=== PATIENT | female | born 1980 | race Caucasian/White ===

== ENCOUNTER → 2016-09-17 | Outpatient (REF) | payer OTHER ==
[~2016-09-17] MED LIST: ACET50TA PO; IBUP60TA PO; LEVO50TA5 PO; VITAPRTA PO
== END ==
LOC: M SFHCWAGY 08:29
PROVIDERS: ATTEND Nurse Practitioner Women's Health
DX: Z12.4 Encounter for screening for malignant neoplasm of cervix (principal)

== ENCOUNTER → 2016-11-09 | Outpatient (REF) | payer OTHER | LOC: M LAB REF 12:30 | PROVIDERS: ATTEND Family Medicine | DX: M25.50 Pain in unspecified joint (principal) ==

== ENCOUNTER → 2017-03-10 | Outpatient (CLI) | payer OTHER ==
[2017-03-10 19:57] LABS: BASO % 0.4 % (0.0-1.0); EOS # 0.1 10^3/uL (0.0-0.50); EOS % 1.3 % (0.0-3.0); IMMATURE GRANULOCYTE % 0.3 % (0-0); LYMPH # 1.2 10^3/uL (1.5-4.5); LYMPH % 15.1 % (24.0-44.0); MEAN CORPUSCULAR HEMOGLOBIN 28.9 pg (27.0-33.0); MEAN CORPUSCULAR HGB CONC 33.1 g/dl (32.0-36.5); MEAN CORPUSCULAR VOLUME 87.3 fl (80.0-96.0); MONO # 0.5 10^3/uL (0.0-0.8); MONO % 6.2 % (0.0-5.0); NEUTROPHILS # 5.9 10^3/uL (1.8-7.7); NEUTROPHILS % 76.7 % (36.0-66.0); PLATELET COUNT, AUTOMATED 239 10^3/uL (150-450); RED CELL DISTRIBUTION WIDTH 13.2 % (11.5-14.5); WHITE BLOOD COUNT 7.6 10^3/uL (4.0-10.0)
[2017-03-12 10:27] LABS: HBsAg Prenatal NEGATIVE (NEGATIVE)
== END ==
LOC: M WUC 15:56
DX: Z36.89 Encounter for other specified antenatal screening (principal); Z3A.11 11 weeks gestation of pregnancy
CPT/HCPCS: 86762

== ENCOUNTER → 2017-04-21 | Outpatient (CLI) | payer OTHER | LOC: M SMT 10:46 | DX: O09.522 Supervision of elderly multigravida, second trimester (principal) ==

== ENCOUNTER → 2017-04-21 | Outpatient (CLI) | payer OTHER | LOC: M SMT 08:27 | DX: O09.522 Supervision of elderly multigravida, second trimester (principal) ==

== ENCOUNTER → 2017-05-18 | Outpatient (CLI) | payer OTHER | LOC: M SMT 13:29 | DX: O09.522 Supervision of elderly multigravida, second trimester (principal); Z3A.22 22 weeks gestation of pregnancy | CPT/HCPCS: 76816 ==

== ENCOUNTER → 2017-06-14 | Outpatient (CLI) | payer OTHER ==
[2017-06-14 13:40] LABS: HEMATOCRIT 32.4 % (36.0-47.0); HEMOGLOBIN 10.5 g/dl (12.0-15.5); MEAN CORPUSCULAR HEMOGLOBIN 28.7 pg (27.0-33.0); MEAN CORPUSCULAR HGB CONC 32.4 g/dl (32.0-36.5); MEAN CORPUSCULAR VOLUME 88.5 fl (80.0-96.0); PLATELET COUNT, AUTOMATED 219 10^3/uL (150-450); RED BLOOD COUNT 3.66 10^6/uL (4.00-5.40); RED CELL DISTRIBUTION WIDTH 13.5 % (11.5-14.5)
[2017-06-14 13:54] LABS: GLUCOSE CHALLENGE TEST 1 HOUR 121 MG/DL (LESS THAN 140)
== END ==
LOC: M SMT 09:54
DX: O09.522 Supervision of elderly multigravida, second trimester (principal); Z3A.00 Weeks of gestation of pregnancy not specified
CPT/HCPCS: 82950

== ENCOUNTER → 2017-07-08 | Outpatient (CLI) | payer OTHER ==
[2017-07-08 12:23] LABS: FREE T4 1.04 NG/DL (0.76-1.46)
== END ==
LOC: M WUC 09:01
DX: E03.9 Hypothyroidism, unspecified (principal)
CPT/HCPCS: 84443

== ENCOUNTER → 2017-08-13 | Outpatient (REF) | payer OTHER | LOC: M LAB REF 15:35 | DX: Z34.83 Encounter for supervision of other normal pregnancy, third trimester (principal); Z3A.00 Weeks of gestation of pregnancy not specified ==

== ENCOUNTER 2017-09-12 19:45 | Inpatient (IN) | payer OTHER ==
[2017-09-12] MEDS: LR 1,000 ML IV (20:26)
[2017-09-12] MEDS: LACTATED RINGER'S 1000 ML IV (20:39)
[2017-09-12] MEDS: OXYTOCIN DRIP 30 UNITS in APPROPRIATE DILUENT 1 EA IV (20:39)
[2017-09-12 20:40] LABS: MEAN CORPUSCULAR HEMOGLOBIN 29.2 pg (27.0-33.0); MEAN CORPUSCULAR HGB CONC 33.3 g/dl (32.0-36.5); MEAN CORPUSCULAR VOLUME 87.6 fl (80.0-96.0); PLATELET COUNT, AUTOMATED 185 10^3/uL (150-450); RED BLOOD COUNT 4.11 10^6/uL (4.00-5.40); WHITE BLOOD COUNT 6.8 10^3/uL (4.0-10.0)
[2017-09-12 20:50] LABS: ALT/SGPT 19 U/L (12-78); AST/SGOT 21 U/L (7-37); BILIRUBIN,TOTAL 0.3 MG/DL (0.2-1.0); CREATININE FOR GFR 0.55 MG/DL (0.55-1.30); GLOMERULAR FILTRATION RATE > 60.0 (>60); LDH LACTATE DEHYDROGENASE 200 U/L (84-246); URIC ACID 3.5 MG/DL (2.6-6.0)
[2017-09-13] MEDS ORDERED: RHOGAM 300 MCG (1500 IU) INJ (J2790) IM (03:00)
[2017-09-13] MEDS ORDERED: MEASLES,MUMPS,RUBELLA VACCINE INJ (MMR-II) (90707) SC (03:00)
[2017-09-13] MEDS ORDERED: MOM 30ML SUSPENSION UDC PO (03:00)
[2017-09-13] MEDS ORDERED: ANUSOL HC CREAM 30GM TOP (03:00)
[2017-09-13] MEDS ORDERED: DOCUSATE SODIUM 100 MG CAP PO (03:00)
[2017-09-13] MEDS ORDERED: ACETAMINOPHEN 500 MG TAB PO (03:00)
[2017-09-13] MEDS: METHYLERGONOVINE MALEATE 0.2 MG TAB PO ×4 (03:22→21:14)
[2017-09-13] MEDS: LIDOCAINE 1% MDV 20ML VIAL INFIL (03:22)
[2017-09-13] MEDS: LEVOTHYROXINE 50MCG TABLET (0.05MG) PO (06:02)
[2017-09-13] MEDS: PRENATAL VITAMINS CHEWABLE TABLET PO (10:02)
[2017-09-13] MEDS: IBUPROFEN 800 MG TAB PO (16:51)
[2017-09-13] MEDS: DIBUCAINE 1% OINTMENT 30GM TOP (21:14)
[2017-09-14] MEDS ORDERED: METHYLERGONOVINE MALEATE 0.2 MG TAB PO (04:00)
[2017-09-14] MEDS: LEVOTHYROXINE 50MCG TABLET (0.05MG) PO (06:35)
[2017-09-14] MEDS: PRENATAL VITAMINS CHEWABLE TABLET PO (09:29)
== END 2017-09-14 14:30 | disposition home or self-care (01) | DRG 560 ==
LOC: M LDI 19:45 → M OBS 09-13 04:39
PROC: 3E033VJ Introduction of Other Hormone into Peripheral Vein, Percutaneous Approach (ICD-10-PCS; 2017-09-12)
PROC: 10907ZC Drainage of Amniotic Fluid, Therapeutic from Products of Conception, Via Natural or Artificial Opening (ICD-10-PCS; 2017-09-12)
PROC: 10E0XZZ Delivery of Products of Conception, External Approach (ICD-10-PCS; principal; 2017-09-13)
PROC: 0HQ9XZZ Repair Perineum Skin, External Approach (ICD-10-PCS; 2017-09-13)
DX: O48.0 Post-term pregnancy (principal); E03.9 Hypothyroidism, unspecified; Z37.0 Single live birth; Z3A.40 40 weeks gestation of pregnancy; O99.284 Endocrine, nutritional and metabolic diseases complicating childbirth; O09.523 Supervision of elderly multigravida, third trimester; O70.0 First degree perineal laceration during delivery

== ENCOUNTER → 2017-10-07 | Outpatient (REF) | payer OTHER | LOC: M LAB REF 17:02 | DX: R10.30 Lower abdominal pain, unspecified (principal) ==

== ENCOUNTER → 2018-10-07 | Outpatient (REF) | payer OTHER ==
[~2018-10-07] MED LIST changes: -ACET50TA PO; +COLA100C5 PO; +IBUP600T42 PO; -IBUP60TA PO; +MAPA500T2 PO; +MILK120011 PO
[2018-10-07 10:39] LABS: BASO % 0.4 % (0.0-1.0); EOS # 0.1 10^3/uL (0.0-0.50); EOS % 1.6 % (0.0-3.0); HEMATOCRIT 39.5 % (36.0-47.0); HEMOGLOBIN 12.9 g/dl (12.0-15.5); LYMPH % 22.7 % (24.0-44.0); MEAN CORPUSCULAR HEMOGLOBIN 27.9 pg (27.0-33.0); MEAN CORPUSCULAR HGB CONC 32.7 g/dl (32.0-36.5); MEAN CORPUSCULAR VOLUME 85.3 fl (80.0-96.0); MONO # 0.3 10^3/uL (0.0-0.8); MONO % 7.4 % (0.0-5.0); NEUTROPHILS % 67.5 % (36.0-66.0); PLATELET COUNT, AUTOMATED 237 10^3/uL (150-450); RED BLOOD COUNT 4.63 10^6/uL (4.00-5.40); WHITE BLOOD COUNT 4.5 10^3/uL (4.0-10.0)
[2018-10-07 10:45] LABS: C REACTIVE PROTEIN QUANTITATIV 0.35 MG/DL (0.00-0.30); RHEUMATOID FACTOR QUANT < 10.0 IU/ML (<15.0)
[2018-10-07 11:21] LABS: ERYTHROCYTE SEDIMENTATION RATE 12 mm/hr (0-20)
[2018-10-11 14:07] LABS: ANTINUCLEAR ANTIBODIES DIRECT Negative (Negative); Lyme Disease IgG Ab 18 kDa Ban Present (.); Lyme Disease IgG Ab 23 kDa Ban Absent (.); Lyme Disease IgG Ab 28 kDa Ban Absent (.); Lyme Disease IgG Ab 30 kDa Ban Absent (.); Lyme Disease IgG Ab 39 kDa Ban Absent (.); Lyme Disease IgG Ab 41 kDa Ban Absent (.); Lyme Disease IgG Ab 45 kDa Ban Absent (.); Lyme Disease IgG Ab 58 kDa Ban Absent (.); Lyme Disease IgG Ab 66 kDa Ban Absent (.); Lyme Disease IgG Ab 93 kDa Ban Absent (.); Lyme Disease IgG West Blot Int Negative (.); Lyme Disease IgG/IgM Antibodie <0.91 ISR (0.00-0.90); Lyme Disease IgM Ab 23 kDa Ban Absent (.); Lyme Disease IgM Ab 39 kDa Ban Absent (.); Lyme Disease IgM Ab 41 kDa Ban Present (.); Lyme Disease IgM Ab Quantitati 0.94 index (0.00-0.79); Lyme Disease IgM West Blot Int Negative (.)
== END ==
LOC: M LABDRAW1 09:33
PROVIDERS: ATTEND Orthopaedic Surgery
DX: M25.551 Pain in right hip (principal)

== ENCOUNTER → 2020-01-11 | Outpatient (REF) | payer BC, OTHER | LOC: M SFHCWAGY 17:13 | PROVIDERS: ATTEND Nurse Practitioner Women's Health | DX: Z12.4 Encounter for screening for malignant neoplasm of cervix (principal) | CPT/HCPCS: 87624; G0123 ==

== ENCOUNTER → 2020-01-16 | Outpatient (CLI) | payer BC ==
--- NOTE | 2020-01-16 15:36 | REPMRS ---
Patient History The patient states she had a clinical breast exam in December 2019. Patient had first child at age 35. Family history of prostate cancer in maternal grandfather. Took hormonal contraceptives for 9 years beginning at age 14. 3D TOMOSYNTHESIS WAS PERFORMED. [facility] lifetime risk for breast cancer is 14.1%. Volpara breast density b. Digital Woman Screen Mammo: January 16, 2020 - Exam #: [id number] Bilateral CC and MLO view(s) were taken. Technologist: Brenna Emery, RT No prior studies available for comparison. FINDINGS: There are scattered fibroglandular densities. There is a mild amount of residual fibroglandular tissue which is fairly symmetric. There is no dominant mass, architectural distortion, or clustered microcalcification suggestive of malignancy. Assessment: BI-RADS/ACR category 1 mammogram. Negative Mammogram. Recommendation Routine screening mammogram in 1 year (for women over age 40). This mammogram was interpreted with the aid of an FDA-approved computer-aided dectection system. Electronically Signed By: Aidan Arauz MD 01/16/20 [id number]
== END ==
LOC: M WHC 13:51
PROVIDERS: ATTEND Nurse Practitioner Women's Health
DX: Z12.31 Encounter for screening mammogram for malignant neoplasm of breast (principal); Z80.42 Family history of malignant neoplasm of prostate

== ENCOUNTER → 2020-08-15 | Outpatient (CLI) | payer BC ==
--- NOTE | 2020-08-15 14:47 | REP ---
INDICATION: N92.6 IRREG MENSES COMPARISON: None. TECHNIQUE: Transabdominal pelvic ultrasound followed by transvaginal examination for better evaluation of the endometrium and adnexa with color Doppler evaluation of the ovaries. FINDINGS: Bladder is unremarkable and measures 11.7 x 8.3 x 10.3 cm. Anteverted uterus measures 13.3 x 5.1 x 8.2 cm. The endometrial complex is hypervascular and thickened measuring up to 21 mm without discrete focal polyp or mass identified. Bilateral ovaries are normal in appearance and vascularity without evidence for torsion. Right ovary measures 2.9 x 1.6 x 2.5 cm; R I = 0.51. Left ovary measures 2.8 x 2.2 x 3.2 cm; R I = 0.48. A tubular structure is identified in the left adnexa adjacent to the ovary suggesting hydrosalpinx. IMPRESSION: 1. Thickened heterogeneous endometrium with surrounding increased vascularity may represent hyperplasia. No obvious focal polyp or mass identified. 2. Possible left adnexal hydrosalpinx. Normal appearance of the bilateral ovaries. 3. Above findings may warrant short-term follow-up ultrasound and if necessary pelvic MRI may be considered for further investigation. <Electronically signed by David Bonner > 08/15/20 [id number]
== END ==
LOC: M WHC 12:55
PROVIDERS: ATTEND Advanced Practice Midwife
DX: N92.6 Irregular menstruation, unspecified (principal); R93.89 Abnormal findings on diagnostic imaging of other specified body structures; N85.4 Malposition of uterus

== ENCOUNTER → 2020-08-19 | Outpatient (REF) | payer BC ==
[2020-08-19 13:46] LABS: HEMATOCRIT 39.3 % (36.0-47.0); MEAN CORPUSCULAR HEMOGLOBIN 29.1 pg (27.0-33.0); MEAN CORPUSCULAR HGB CONC 33.1 g/dl (32.0-36.5); MEAN CORPUSCULAR VOLUME 87.9 fl (80.0-96.0); PLATELET COUNT, AUTOMATED 220 10^3/uL (150-450); RED BLOOD COUNT 4.47 10^6/uL (4.00-5.40); WHITE BLOOD COUNT 4.5 10^3/uL (4.0-10.0)
[2020-08-19 14:32] LABS: FREE T4 0.99 NG/DL (0.76-1.46); THYROID STIMULATING HORMONE 1.28 uIU/ML (0.358-3.740)
== END ==
LOC: M PLALAB 11:32
PROVIDERS: ATTEND Advanced Practice Midwife
DX: N92.6 Irregular menstruation, unspecified (principal)

== ENCOUNTER → 2020-08-21 | Outpatient (REF) | payer BC | LOC: M SFHCWAGY 09:57 | PROVIDERS: ATTEND Advanced Practice Midwife | DX: O03.9 Complete or unspecified spontaneous abortion without complication (principal) ==

== ENCOUNTER → 2020-08-22 | Outpatient (CLI) | payer BC ==
[~2020-08-22] MED LIST changes: +LEVO25TA5 PO; +PRENTAB60 PO
== END ==
LOC: M LABSMTC 12:38
PROVIDERS: ATTEND Anesthesiology
DX: Z01.812 Encounter for preprocedural laboratory examination (principal); Z20.822 Contact with and (suspected) exposure to COVID-19

== ENCOUNTER 2020-08-23 10:47 | Day surgery (SDC) | payer BC ==
[~2020-08-23] VITALS: Ht 167.6 cm; Wt 87.9 kg
[~2020-08-23 10:47] MED LIST changes: -LEVO25TA5 PO; +LIDOCAINE 1% MDV 20ML VIAL SQ PRN; +LIDOCAINE 2% 100MG/5ML SDV (FOR ANES.) As Ordered ONE; +MIDAZOLAM INJ 2MG/2ML VIAL (J2250 PER 1MG) As Ordered ONE; -PRENTAB60 PO; +fentaNYL 100 MCG/2 ML INJECTION (J3010) As Ordered ONE; +propofoL 200 MG/20 ML VIAL As Ordered ONE
[2020-08-23] MEDS ORDERED: LEVO25TA5 PO (11:09)
[2020-08-23] MEDS ORDERED: PRENTAB60 PO (11:09)
[2020-08-23 11:22] LABS: HEMATOCRIT 38.8 % (36.0-47.0); HEMOGLOBIN 12.5 g/dl (12.0-15.5); MEAN CORPUSCULAR HEMOGLOBIN 28.3 pg (27.0-33.0); MEAN CORPUSCULAR HGB CONC 32.2 g/dl (32.0-36.5); PLATELET COUNT, AUTOMATED 209 10^3/uL (150-450); RED BLOOD COUNT 4.41 10^6/uL (4.00-5.40); WHITE BLOOD COUNT 4.1 10^3/uL (4.0-10.0)
[2020-08-23] MEDS ORDERED: LR 1,000 ML IV ONE (11:45)
[2020-08-23 11:52] LABS: HCG, SERUM QUALITATIVE POSITIVE (NEGATIVE)
[2020-08-23] MEDS ORDERED: ACETAMINOPHEN 1000MG 100ML IV BTL (OFIRMEV) (J0131 PER 10MG) As Ordered ONE (12:26)
[2020-08-23] MEDS ORDERED: dexameTHASONE 4 MG/ML 1ML VIAL (J1100 PER 1MG) As Ordered ONE (12:26)
[2020-08-23] MEDS ORDERED: ONDANSETRON 4MG/2ML VIAL As Ordered ONE (12:26)
[2020-08-23] MEDS ORDERED: METHYLERGONOVINE MALEATE 0.2 MG/ML VIAL (J2210) As Ordered ONE (12:53)
[2020-08-23] MEDS ORDERED: METOCLOPRAMIDE INJ 10MG/2ML VIAL (J2765 PER 1) As Ordered ONE (12:56)
--- NOTE | 2020-08-23 13:10 | ROOPDOC ---
[facility] Report Of Operation Report of Operation DATE OF PROCEDURE: 08/23/2020 PREOPERATIVE DIAGNOSIS: Suspected retained products of conception, status post first trimester miscarriage/endometrial cavity mass POSTOPERATIVE DIAGNOSIS: Suspected retained products of conception, status post first trimester miscarriage / endometrial cavity mass PROCEDURE PERFORMED: Hysteroscopy, dilatation and curettage. Suction curettage SURGEON: Sree Wiggins DO IRB COMPLIANCE COORDINATOR: None. ANESTHESIA TYPE: General via LMA. SPECIMENS SENT TO PATHOLOGY: Endometrial curettings, suction curettings for endometrial biopsy. Suspected products of conception ESTIMATED BLOOD LOSS: 200 mL. FLUIDS REPLACED: 900 mL lactated Ringer's. DRAINS: In and out urinary catheter. URINE OUTPUT: 250 mL. in and out catheter COMPLICATIONS: None. PREOPERATIVE ANTIBIOTICS: None indicated. INTRAOPERATIVE FINDINGS: A significant amount of tissue noted in the right side of the endometrial cavity, self pay representative images were taken. Subsequent removal revealed tissue that was grossly consistent with products of conception versus endometrial polypoid tissue. Given her history, I suspect products of conception INDICATIONS: 40-year-old with persistent bleeding after a miscarriage in May 2020 and an ultrasound suggestive of an endometrial mass with vascularity. PROCEDURE: The patient was counseled and consented on the risks, benefits, indications, and alternatives of the procedure. Informed consent was obtained. She was taken to the operating room with an IV running and placed on the operating room table in the dorsal supine position. General anesthesia was administered and the airway secured without any difficulty. She was then placed in the high lithotomy position. She was prepped and draped in normal sterile fashion. A timeout was performed per protocol. The bladder was drained with a sterile in and out catheter. A sterile speculum was placed with good visualization of the cervix. The cervix was grasped with a single-toothed tenaculum and downward traction was applied. The cervix was then sequentially dilated with Arthur dilators up to a #18. The hysteroscope was placed transcervically into the intrauterine cavity with the findings noted above, then the hysteroscope was removed after taking self pay representative images. The curette was placed transcervically into the intrauterine cavity and the tissue that had been visualized was curetted until there was gritty texture noted throughout the cavity. Initial brisk bleeding was noted after this was performed, thus 0.2 mg IM Methergine was administered. Suction curettage was performed with a size 8 curved Vacurette, just to ensure that all the tissue was removed. The bleeding from the os after removal of the Vacurette was minimal. The tenaculum was removed. The tenaculum sites were hemostatic. All instruments were removed from the vagina. Sponge, needle, and instrument counts were correct per protocol. The patient tolerated the entire procedure well. She was transferred to the PACU in good and stable condition. SREE WIGGINS DO Aug 23, 2020 13:10
[2020-08-23] MEDS ORDERED: DOXYCYCLINE HYCLATE 100MG TABLET PO ONE (13:15)
[2020-08-23] MEDS ORDERED: LR 1,000 ML IV SCH ×2 (13:15→13:25)
[2020-08-23] MEDS ORDERED: fentaNYL 100 MCG/2 ML INJECTION (J3010) IV PRN (13:25)
[2020-08-23] MEDS ORDERED: ONDANSETRON 4MG/2ML VIAL IV PRN (13:25)
[2020-08-23] MEDS ORDERED: oxyCODONE 5MG TAB PO PRN (13:25)
[2020-08-23 13:41] LABS: HCG, SERUM QUANTITATIVE 125 MIU/ML
[2020-08-23 14:35] VITALS: BP 144/80
== END 2020-08-23 14:40 | disposition home or self-care (01) ==
LOC: M SDC 10:47
PROVIDERS: ATTEND Obstetrics & Gynecology
DX: N93.9 Abnormal uterine and vaginal bleeding, unspecified (principal); E03.9 Hypothyroidism, unspecified; M19.90 Unspecified osteoarthritis, unspecified site
CPT/HCPCS: 36415; 58558; 84702; 84703; 85027; 86850; 86900; 86901; 88305; J0131; J1100; J2210; J2250; J2405; J2765; J3010

== ENCOUNTER → 2021-02-11 | Outpatient (CLI) | payer BC ==
[~2021-02-11] MED LIST changes: +LEVO25TA5 PO; -LIDOCAINE 1% MDV 20ML VIAL SQ PRN; -LIDOCAINE 2% 100MG/5ML SDV (FOR ANES.) As Ordered ONE; -MIDAZOLAM INJ 2MG/2ML VIAL (J2250 PER 1MG) As Ordered ONE; +PRENTAB60 PO; -fentaNYL 100 MCG/2 ML INJECTION (J3010) As Ordered ONE; -propofoL 200 MG/20 ML VIAL As Ordered ONE
== END ==
LOC: M WHC 07:29
PROVIDERS: ATTEND Nurse Practitioner Women's Health
DX: Z12.31 Encounter for screening mammogram for malignant neoplasm of breast (principal); Z80.42 Family history of malignant neoplasm of prostate

== ENCOUNTER → 2021-07-30 | Outpatient (REF) | payer BC | LOC: M LAB REF 12:21 | PROVIDERS: ATTEND Family Medicine | DX: N91.1 Secondary amenorrhea (principal) ==

== ENCOUNTER → 2021-09-19 | Outpatient (CLI) | payer BC ==
[2021-09-19 13:09] LABS: BASO % 0.5 % (0.0-1.0); EOS # 0.1 10^3/uL (0.0-0.5); HEMATOCRIT 38.5 % (36.0-47.0); HEMOGLOBIN 12.8 g/dl (12.0-15.5); LYMPH # 0.8 10^3/uL (1.5-5.0); LYMPH % 14.3 % (24.0-44.0); MEAN CORPUSCULAR HEMOGLOBIN 28.9 pg (27.0-33.0); MEAN CORPUSCULAR HGB CONC 33.2 g/dl (32.0-36.5); MEAN CORPUSCULAR VOLUME 86.9 fl (80.0-96.0); MONO # 0.4 10^3/uL (0.0-0.8); MONO % 6.4 % (2.0-8.0); NEUTROPHILS # 4.5 10^3/uL (1.5-8.5); NEUTROPHILS % 77.5 % (36.0-66.0); PLATELET COUNT, AUTOMATED 221 10^3/uL (150-450); RED BLOOD COUNT 4.43 10^6/uL (4.00-5.40); WHITE BLOOD COUNT 5.8 10^3/uL (4.0-10.0)
[2021-09-19 14:36] LABS: HEPATITIS C VIRUS ABY INDEX 0.1 INDEX (<0.8); HIV 1&2 SCREEN CENTAUR NEGATIVE (NEGATIVE)
[2021-09-19 14:44] LABS: GC DNA AMPLIFICATION NEGATIVE (NEGATIVE)
== END ==
LOC: M PLALAB 10:49
PROVIDERS: ATTEND Specialist
DX: Z34.81 Encounter for supervision of other normal pregnancy, first trimester (principal)

== ENCOUNTER → 2021-11-10 | Outpatient (CLI) | payer BC ==
[2021-11-10 11:56] LABS: FREE T4 1.03 NG/DL (0.76-1.46); THYROID STIMULATING HORMONE 2.39 uIU/ML (0.358-3.740)
== END ==
LOC: M PLALAB 08:26
PROVIDERS: ATTEND Obstetrics & Gynecology
DX: E03.9 Hypothyroidism, unspecified (principal)

== ENCOUNTER → 2021-11-18 | Outpatient (CLI) | payer BC | LOC: M WHC 09:30 | PROVIDERS: ATTEND Obstetrics & Gynecology | DX: Z36.3 Encounter for antenatal screening for malformations (principal); Z3A.19 19 weeks gestation of pregnancy ==

== ENCOUNTER → 2022-01-09 | Outpatient (CLI) | payer BC ==
[2022-01-09 13:55] LABS: HEMATOCRIT 32.3 % (36.0-47.0); HEMOGLOBIN 10.3 g/dl (12.0-15.5); MEAN CORPUSCULAR HEMOGLOBIN 29.1 pg (27.0-33.0); MEAN CORPUSCULAR HGB CONC 31.9 g/dl (32.0-36.5); MEAN CORPUSCULAR VOLUME 91.2 fl (80.0-96.0); PLATELET COUNT, AUTOMATED 205 10^3/uL (150-450); RED BLOOD COUNT 3.54 10^6/uL (4.00-5.40); WHITE BLOOD COUNT 5.8 10^3/uL (4.0-10.0)
[2022-01-09 14:16] LABS: FREE T4 1.03 NG/DL (0.76-1.46); THYROID STIMULATING HORMONE 2.03 uIU/ML (0.358-3.740)
== END ==
LOC: M PLALAB 09:50
PROVIDERS: ATTEND Advanced Practice Midwife
DX: O09.529 Supervision of elderly multigravida, unspecified trimester (principal); Z3A.00 Weeks of gestation of pregnancy not specified

== ENCOUNTER → 2022-01-21 | Outpatient (CLI) | payer BC | LOC: M LAB 07:49 | PROVIDERS: ATTEND Advanced Practice Midwife | DX: O99.810 Abnormal glucose complicating pregnancy (principal); Z3A.00 Weeks of gestation of pregnancy not specified ==

== ENCOUNTER → 2022-02-26 | Outpatient (CLI) | payer BC | LOC: M WHC 10:32 | PROVIDERS: ATTEND Obstetrics & Gynecology | DX: O09.293 Supervision of pregnancy with other poor reproductive or obstetric history, third trimester (principal); Z3A.33 33 weeks gestation of pregnancy ==

== ENCOUNTER → 2022-03-11 | Outpatient (CLI) | payer BC ==
[2022-03-11 14:05] LABS: FREE T4 0.93 NG/DL (0.89-1.76); THYROID STIMULATING HORMONE 3.01 uIU/ML (0.55-4.78)
== END ==
LOC: M PLALAB 09:47
PROVIDERS: ATTEND Advanced Practice Midwife
DX: O99.280 Endocrine, nutritional and metabolic diseases complicating pregnancy, unspecified trimester (principal)

== ENCOUNTER → 2022-03-12 | Outpatient (REF) | payer BC | LOC: M PLALAB 15:43 | PROVIDERS: ATTEND Advanced Practice Midwife | DX: Z36.85 Encounter for antenatal screening for Streptococcus B (principal); O09.523 Supervision of elderly multigravida, third trimester ==

== ENCOUNTER → 2022-03-27 | Outpatient (CLI) | payer BC, MEDICARE ==
[2022-03-27 10:37] LABS: HEMATOCRIT 33.8 % (36.0-47.0); HEMOGLOBIN 11.1 g/dl (12.0-15.5); MEAN CORPUSCULAR HEMOGLOBIN 30.4 pg (27.0-33.0); MEAN CORPUSCULAR HGB CONC 32.8 g/dl (32.0-36.5); MEAN CORPUSCULAR VOLUME 92.6 fl (80.0-96.0); PLATELET COUNT, AUTOMATED 157 10^3/uL (150-450); RED BLOOD COUNT 3.65 10^6/uL (4.00-5.40); WHITE BLOOD COUNT 5.9 10^3/uL (4.0-10.0)
[2022-03-27 10:57] LABS: URIC ACID 4.6 MG/DL (3.1-7.8)
[2022-03-27 10:59] LABS: LDH LACTATE DEHYDROGENASE 179 U/L (120-246); TOTAL PROTEIN,RANDOM URINE 8.7 MG/DL (0.0-14.0)
[2022-03-27 11:00] LABS: ALT/SGPT 15 U/L (7.0-40); AST/SGOT 18 U/L (<34); BILIRUBIN,TOTAL 0.5 MG/DL (0.3-1.2); CREATININE FOR GFR 0.63 MG/DL (0.55-1.30); GLOMERULAR FILTRATION RATE > 60.0 (>58)
[2022-03-27 11:03] LABS: CREATININE,RANDOM URINE 31.6 MG/DL
== END ==
LOC: M PLALAB 08:39
PROVIDERS: ATTEND Advanced Practice Midwife
DX: O13.9 Gestational [pregnancy-induced] hypertension without significant proteinuria, unspecified trimester (principal)

== ENCOUNTER 2022-03-31 05:30 | Inpatient (IN) | payer BC ==
[~2022-03-31] VITALS: Ht 167.6 cm; Wt 93.4 kg
[2022-03-31] VITALS (9 sets, daily range): BP systolic 119–153; BP diastolic 66–93
[2022-03-31] MEDS ORDERED: OXYTOCIN INJ 10UNITS/ML 1ML VIAL IM PRN (05:50)
[2022-03-31] MEDS ORDERED: CARBOPROST TROMETHAMINE 250 MCG/ML AMP IM PRN (05:50)
[2022-03-31] MEDS ORDERED: TRANEXAMIC ACID INJection 1,000 MG in NS 100 ML IV PRN (05:50)
[2022-03-31] MEDS ORDERED: LIDOCAINE 1% MDV 20ML VIAL INFIL PRN (05:50)
[2022-03-31] MEDS ORDERED: OXYTOCIN DRIP 30 UNITS in IV 1 EA IV PRN (05:50)
[2022-03-31 06:24] LABS: HEMATOCRIT 38.7 % (36.0-47.0); HEMOGLOBIN 12.8 g/dl (12.0-15.5); MEAN CORPUSCULAR HEMOGLOBIN 29.6 pg (27.0-33.0); MEAN CORPUSCULAR HGB CONC 33.1 g/dl (32.0-36.5); MEAN CORPUSCULAR VOLUME 89.6 fl (80.0-96.0); PLATELET COUNT, AUTOMATED 174 10^3/uL (150-450); RED BLOOD COUNT 4.32 10^6/uL (4.00-5.40); WHITE BLOOD COUNT 10.2 10^3/uL (4.0-10.0)
[2022-03-31 07:04] LABS: LDH LACTATE DEHYDROGENASE 261 U/L (120-246)
[2022-03-31 07:05] LABS: ALT/SGPT 16 U/L (7.0-40); AST/SGOT 24 U/L (<34); BILIRUBIN,TOTAL 0.6 MG/DL (0.3-1.2); CREATININE FOR GFR 0.58 MG/DL (0.55-1.30); GLOMERULAR FILTRATION RATE > 60.0 (>58)
[2022-03-31 07:27] LABS: URIC ACID 4.7 MG/DL (3.1-7.8)
[2022-03-31] MEDS ORDERED: ACETAMINOPHEN TAB 650MG DOSE (2X325MG) PO PRN (09:25)
[2022-03-31] MEDS ORDERED: IBUPROFEN 600MG TAB PO PRN (09:25)
[2022-03-31] MEDS ORDERED: IBUPROFEN 800 MG TAB PO PRN (09:25)
[2022-03-31] MEDS ORDERED: DOCUSATE SODIUM 100MG CAPSULE PO PRN (09:25)
[2022-03-31] MEDS ORDERED: ANUSOL HC CREAM 30GM TOP PRN (09:25)
[2022-03-31] MEDS ORDERED: RHOGAM 300MCG (1500IU) INJ IM SCH (09:25)
[2022-03-31] MEDS ORDERED: ACETAMINOPHEN 500 MG TAB PO PRN (09:25)
[2022-03-31] MEDS ORDERED: DIBUCAINE 1% OINTMENT 30GM TOP PRN (09:25)
[2022-03-31] MEDS ORDERED: MOM 30ML SUSPENSION UDC PO PRN (09:25)
[2022-04-01 02:00] VITALS: BP 122/65
[2022-04-01 06:00] VITALS: BP 131/76
[2022-04-01] MEDS: PRENATAL VITAMINS CHEWABLE TABLET PO SCH (08:17)
[2022-04-01 10:00] VITALS: BP 121/59
[2022-04-01 14:00] VITALS: BP 114/68
[2022-04-01 18:00] VITALS: BP 139/68
[2022-04-01 21:45] VITALS: BP 135/74
[2022-04-02 02:00] VITALS: BP 118/65
[2022-04-02 05:44] VITALS: BP 137/79
[2022-04-02] MEDS: PRENATAL VITAMINS CHEWABLE TABLET PO SCH (08:33)
[2022-04-02] MEDS ORDERED: MEASLES,MUMPS,RUBELLA VACCINE INJ (MMR-II) SC.IMMUN ONE (09:00)
[2022-04-02] MEDS ORDERED: IBUP-1022 PO (09:45)
[2022-04-02] MEDS ORDERED: COLA100C5 PO (09:45)
[2022-04-02] MEDS ORDERED: ACET-683 PO (09:45)
[2022-04-02 10:00] VITALS: BP 132/76
== END 2022-04-02 12:50 | disposition home or self-care (01) | DRG 560 ==
LOC: M LDO 05:30 → M LDI 06:02 → M OBS 11:04
PROVIDERS: ADMIT Advanced Practice Midwife; ATTEND Advanced Practice Midwife
PROC: 10E0XZZ Delivery of Products of Conception, External Approach (ICD-10-PCS; principal; 2022-03-31)
DX: O13.4 Gestational [pregnancy-induced] hypertension without significant proteinuria, complicating childbirth (principal); E03.9 Hypothyroidism, unspecified; Z37.0 Single live birth; Z3A.38 38 weeks gestation of pregnancy; O09.523 Supervision of elderly multigravida, third trimester; O99.284 Endocrine, nutritional and metabolic diseases complicating childbirth

== ENCOUNTER → 2022-05-22 | Outpatient (CLI) | payer BC ==
[~2022-05-22] MED LIST changes: +ACET-683 PO; +IBUP-1022 PO
[2022-05-22 14:14] LABS: FREE T4 1.15 NG/DL (0.89-1.76); THYROID STIMULATING HORMONE 2.834 uIU/ML (0.55-4.78)
== END ==
LOC: M PLALAB 08:57
PROVIDERS: ATTEND Advanced Practice Midwife
DX: E03.9 Hypothyroidism, unspecified (principal)

== ENCOUNTER → 2022-11-04 | Outpatient (CLI) | payer BC | LOC: M WHC 08:15 | PROVIDERS: ATTEND Advanced Practice Midwife | DX: Z12.31 Encounter for screening mammogram for malignant neoplasm of breast (principal) ==

== ENCOUNTER → 2022-11-04 | Outpatient (REF) | payer BC | LOC: M PLALAB 09:08 | PROVIDERS: ATTEND Advanced Practice Midwife | DX: Z12.4 Encounter for screening for malignant neoplasm of cervix (principal) | CPT/HCPCS: 87624; G0123 ==

== ENCOUNTER → 2022-11-11 | Outpatient (CLI) | payer BC | LOC: M EKG 08:55 | PROVIDERS: ATTEND Advanced Practice Midwife | DX: Z01.419 Encounter for gynecological examination (general) (routine) without abnormal findings (principal) ==

== ENCOUNTER → 2022-11-11 | Outpatient (CLI) | payer BC | LOC: M WHC 08:00 | PROVIDERS: ATTEND Advanced Practice Midwife | DX: N88.8 Other specified noninflammatory disorders of cervix uteri (principal) ==

== ENCOUNTER → 2022-12-28 | Outpatient (REF) | payer BC ==
[2022-12-28 13:36] LABS: BASO % 0.8 % (0.0-1.0); EOS # 0.1 10^3/uL (0.0-0.5); EOS % 2.8 % (0.0-3.0); HEMATOCRIT 40.5 % (36.0-47.0); HEMOGLOBIN 13.3 g/dl (12.0-15.5); LYMPH % 24.7 % (24.0-44.0); MEAN CORPUSCULAR HEMOGLOBIN 29.9 pg (27.0-33.0); MEAN CORPUSCULAR HGB CONC 32.8 g/dl (32.0-36.5); MONO # 0.4 10^3/uL (0.0-0.8); MONO % 9.5 % (2.0-8.0); NEUTROPHILS # 2.4 10^3/uL (1.5-8.5); NEUTROPHILS % 61.9 % (36.0-66.0); PLATELET COUNT, AUTOMATED 230 10^3/uL (150-450); RED BLOOD COUNT 4.45 10^6/uL (4.00-5.40); WHITE BLOOD COUNT 3.9 10^3/uL (4.0-10.0)
[2022-12-28 13:46] LABS: ALBUMIN 4.2 G/DL (3.2-5.2); ALKALINE PHOSPHATASE 90 U/L (46-116); ALT/SGPT 13 U/L (7.0-40); AST/SGOT 12 U/L (<34); BILIRUBIN,TOTAL 0.7 MG/DL (0.3-1.2); BLOOD UREA NITROGEN 11 MG/DL (9-23); CARBON DIOXIDE LEVEL 31 MMOL/L (20-31); CHLORIDE LEVEL 106 MMOL/L (98-107); CREATININE FOR GFR 0.63 MG/DL (0.55-1.30); GLOMERULAR FILTRATION RATE > 60.0 (>58); GLUCOSE, FASTING 82 MG/DL (60-100); POTASSIUM SERUM 4.1 MMOL/L (3.5-5.1); SODIUM LEVEL 143 MMOL/L (136-145); TOTAL PROTEIN 7.5 G/DL (5.7-8.2)
[2022-12-28 13:48] LABS: FREE T4 1.11 NG/DL (0.89-1.76)
[2022-12-28 13:49] LABS: THYROID STIMULATING HORMONE 2.039 uIU/ML (0.55-4.78)
== END ==
LOC: M LAB REF 12:23
PROVIDERS: ATTEND Family Medicine
DX: E03.9 Hypothyroidism, unspecified (principal); M54.50 Low back pain, unspecified; M25.552 Pain in left hip

== ENCOUNTER → 2023-01-06 | Outpatient (CLI) | payer BC | LOC: M WHC 08:26 | PROVIDERS: ATTEND Advanced Practice Midwife | DX: N83.201 Unspecified ovarian cyst, right side (principal); N83.202 Unspecified ovarian cyst, left side; N88.8 Other specified noninflammatory disorders of cervix uteri; R93.89 Abnormal findings on diagnostic imaging of other specified body structures ==

== ENCOUNTER 2023-08-19 10:23 | Day surgery (SDC) | payer BC, OTHER ==
[~2023-08-19] VITALS: Ht 167.6 cm; Wt 85.1 kg
[~2023-08-19 10:23] MED LIST changes: +propofoL 200 MG/20 ML VIAL As Ordered ONE
[2023-08-19] MEDS: NS 1,000 ML IV ONE (11:18)
[2023-08-19] MEDS ORDERED: LIDOCAINE 2% 100MG/5ML SDV (FOR ANES.) As Ordered ONE (12:50)
[2023-08-19 12:53] VITALS: TEMP 97.2
[2023-08-19 13:11] VITALS: BP 124/74; O2SAT 99
== END 2023-08-19 13:14 | disposition home or self-care (01) ==
LOC: M OPP 10:23
PROVIDERS: ATTEND Surgery
DX: Z12.11 Encounter for screening for malignant neoplasm of colon (principal); Z80.0 Family history of malignant neoplasm of digestive organs; Z79.890 Hormone replacement therapy

== ENCOUNTER → 2023-11-18 | Outpatient (CLI) | payer OTHER ==
[~2023-11-18] MED LIST changes: -propofoL 200 MG/20 ML VIAL As Ordered ONE
== END ==
LOC: M WHC 08:23
PROVIDERS: ATTEND Advanced Practice Midwife
DX: Z12.31 Encounter for screening mammogram for malignant neoplasm of breast (principal); R92.313 Mammographic fatty tissue density, bilateral breasts

== ENCOUNTER → 2024-11-22 | Outpatient (CLI) | payer OTHER ==
[~2024-11-22] MED LIST changes: -IBUP-1022 PO
== END ==
LOC: M WHC 08:24
PROVIDERS: ATTEND Obstetrics & Gynecology
DX: Z12.31 Encounter for screening mammogram for malignant neoplasm of breast (principal); R92.313 Mammographic fatty tissue density, bilateral breasts